=== PATIENT | female | born 1970 ===

== ENCOUNTER 2024-10-09 05:10 | Day surgery (SDC) | payer OTHER ==
[2024-10-04 13:28] VITALS: BP 139/90
[~2024-10-09] VITALS: Ht 152.4 cm; Wt 64.0 kg
[~2024-10-09 05:10] MED LIST: ACTOS30 MG PO; DAILY VALUE1 EACH PO; EZALLOR SPRINKLE5 MG PO; SYNTHROID88 MCG PO
[2024-10-09] MEDS ORDERED: POVIDONE-IODINE 118 ML BOTT TOP ONE (08:23)
[2024-10-09] MEDS ORDERED: IBUPROFEN600 MG PO (11:33)
== END 2024-10-09 15:20 | disposition home or self-care (01) ==
LOC: CIR.AMB 05:10
PROVIDERS: ATTEND Obstetrics & Gynecology Gynecology
DX: N85.00 Endometrial hyperplasia, unspecified (principal); N72 Inflammatory disease of cervix uteri